=== PATIENT | male | born 1930 | race Asian ===

== ENCOUNTER 2019-07-07 18:12 | Inpatient (IN) | payer OTHER, BC ==
[~2019-07-07] VITALS: Ht 162.6 cm; Wt 72.6 kg
[2019-07-07 18:26] VITALS: Ht 162.6 cm; Wt 72.6 kg
[2019-07-07 19:31] LABS: PLATELET COUNT 169 x10^3mcL (130-400); RED CELL DISTRIBUTION WIDTH 13.3 % (11.5-14.5)
[2019-07-07 19:34] LABS: CALCIUM 8.3 mg/dL (8.5-10.1); CARBON DIOXIDE 25.7 mmol/L (21-32); CHLORIDE SERUM 107 mmol/L (98-107); GLUCOSE SERUM 92 mg/dL (74-106); POTASSIUM SERUM 3.5 mmol/L (3.5-5.1); SODIUM SERUM 142 mmol/L (136-145)
[2019-07-07 19:38] LABS: ALKALINE PHOSPHATASE 70 U/L (46-116); ALT/SGPT 18 U/L (16-63); AST/SGOT 18 U/L (15-37); BILIRUBIN TOTAL 0.6 mg/dL (0.20-1.00)
[2019-07-07 19:43] LABS: ALBUMIN 3.3 g/dL (3.4-5.0)
[2019-07-07 19:56] LABS: BAND NEUTROPHIL 0 % (0-10); BASOPHIL 0 % (0-2); MONOCYTE 14 % (0-7); SEGMENTED NEUTROPHILS 71 % (37-75); rbc morphology (normal/abnorm) NORMAL (NORMAL)
[2019-07-07 20:39] LABS: CHOLESTEROL/HDL RATIO 2.6
[2019-07-07 20:48] LABS: FREE T4 0.95 ng/dL (0.76-1.46); FREE THYROXINE INDEX 2.1 ug/dL (1.4-4.5)
[2019-07-07 20:49] LABS: UA SPECIFIC GRAVITY <=1.005 (1.005-1.035); microscopic required? YES; urine erythrocyte TRACE (NEGATIVE)
[2019-07-07 20:51] LABS: T3 TOTAL 0.86 ng/mL
[2019-07-07 20:58] LABS: AMPHETAMINE QUAL UR NONE DETECTED (See below)
[2019-07-07 21:46] VITALS: BP 137/83
[2019-07-08 06:35] VITALS: BP 151/78
[2019-07-08 07:19] LABS: BASOPHIL % 0.2 % (0-2); PLATELET COUNT 173 x10^3mcL (130-400); RED CELL DISTRIBUTION WIDTH 13.4 % (11.5-14.5)
[2019-07-08 07:50] LABS: CALCIUM 7.8 mg/dL (8.5-10.1); CARBON DIOXIDE 22.9 mmol/L (21-32); CHLORIDE SERUM 110 mmol/L (98-107); CREATININE SERUM 0.7 mg/dL (0.7-1.3); GLUCOSE SERUM 130 mg/dL (74-106); POTASSIUM SERUM 3.8 mmol/L (3.5-5.1); SODIUM SERUM 143 mmol/L (136-145)
[2019-07-08 08:26] VITALS: BP 145/72
[2019-07-08] MEDS ORDERED: SINGULAIR10 MG PO (13:11)
[2019-07-08] MEDS ORDERED: AVODART0.5 M1 PO (13:12)
[2019-07-08] MEDS ORDERED: FLO4 PO (13:12)
[2019-07-08] MEDS ORDERED: LIPI10 PO (13:14)
[2019-07-08] MEDS ORDERED: LEVOCETIRIZINE D5 M1 PO (13:15)
[2019-07-08] MEDS ORDERED: ASPIRIN ADULT L81 M3 PO (13:17)
[2019-07-08] MEDS ORDERED: AMBIEN5 MG PO (13:18)
[2019-07-08 16:27] VITALS: BP 119/70
[2019-07-08 21:33] VITALS: BP 122/64
[2019-07-09 05:27] VITALS: BP 131/74
[2019-07-09 06:48] LABS: PLATELET COUNT 182 x10^3mcL (130-400); RED CELL DISTRIBUTION WIDTH 13.6 % (11.5-14.5)
[2019-07-09 06:58] LABS: BASOPHIL % 0 % (0-2)
[2019-07-09 07:32] LABS: CALCIUM 8.1 mg/dL (8.5-10.1); CARBON DIOXIDE 20.2 mmol/L (21-32); CHLORIDE SERUM 109 mmol/L (98-107); CREATININE SERUM 0.9 mg/dL (0.7-1.3); GLUCOSE SERUM 125 mg/dL (74-106); MAGNESIUM 2.3 mg/dL (1.8-2.4); PHOSPHOROUS 3.1 mg/dL (2.5-4.9); POTASSIUM SERUM 3.4 mmol/L (3.5-5.1); SODIUM SERUM 144 mmol/L (136-145)
[2019-07-09 08:54] VITALS: BP 124/67
[2019-07-09 12:27] VITALS: BP 113/71
[2019-07-09 16:46] VITALS: BP 138/79
[2019-07-09 20:40] VITALS: BP 136/72
[2019-07-10 05:50] VITALS: BP 136/64
[2019-07-10 07:21] LABS: BASOPHIL % 0.1 % (0-2); PLATELET COUNT 196 x10^3mcL (130-400); RED CELL DISTRIBUTION WIDTH 13.4 % (11.5-14.5)
[2019-07-10 07:36] LABS: CALCIUM 8.1 mg/dL (8.5-10.1); CARBON DIOXIDE 24.4 mmol/L (21-32); CHLORIDE SERUM 107 mmol/L (98-107); CREATININE SERUM 0.8 mg/dL (0.7-1.3); GLUCOSE SERUM 111 mg/dL (74-106); MAGNESIUM 2.1 mg/dL (1.8-2.4); PHOSPHOROUS 3.6 mg/dL (2.5-4.9); POTASSIUM SERUM 3.7 mmol/L (3.5-5.1); SODIUM SERUM 142 mmol/L (136-145)
[2019-07-10 09:13] VITALS: BP 131/88
[2019-07-10 09:43] VITALS: BP 131/88
[2019-07-10 12:12] VITALS: BP 125/72
[2019-07-10 16:31] VITALS: BP 130/68
[2019-07-10 21:08] VITALS: BP 138/63
[2019-07-11 06:07] VITALS: BP 140/74
[2019-07-11 06:51] LABS: BASOPHIL % 0.1 % (0-2); PLATELET COUNT 205 x10^3mcL (130-400); RED CELL DISTRIBUTION WIDTH 13.5 % (11.5-14.5)
[2019-07-11 07:05] LABS: CALCIUM 7.9 mg/dL (8.5-10.1); CARBON DIOXIDE 25.3 mmol/L (21-32); CHLORIDE SERUM 106 mmol/L (98-107); CREATININE SERUM 0.8 mg/dL (0.7-1.3); GLUCOSE SERUM 109 mg/dL (74-106); POTASSIUM SERUM 3.8 mmol/L (3.5-5.1); SODIUM SERUM 142 mmol/L (136-145)
[2019-07-11 09:27] VITALS: BP 119/80
[2019-07-11] MEDS ORDERED: ZITHROMAX TRI-500 MG PO (10:59)
[2019-07-11] MEDS ORDERED: MEDDP PO (11:00)
[2019-07-11] MEDS ORDERED: TAMIFLU6 MG/ML PO (11:07)
[2019-07-11 13:05] VITALS: BP 133/76
== END 2019-07-11 17:10 | disposition home health service (06) | DRG 193 ==
LOC: ED 18:12 → DU 20:03
PROVIDERS: Emergency Medicine; ADMIT Internal Medicine
DX: J09.X1 Influenza due to identified novel influenza A virus with pneumonia (principal); J96.01 Acute respiratory failure with hypoxia; J44.1 Chronic obstructive pulmonary disease with (acute) exacerbation; F17.210 Nicotine dependence, cigarettes, uncomplicated; I11.9 Hypertensive heart disease without heart failure; I25.10 Atherosclerotic heart disease of native coronary artery without angina pectoris; E78.5 Hyperlipidemia, unspecified; Z68.27 Body mass index [BMI] 27.0-27.9, adult; Z95.5 Presence of coronary angioplasty implant and graft
CPT/HCPCS: 84439; 87804; 94150; 97110-GP; 97116-GP; 97530-GP; G0378; J0456; J0696; J2920; J2930; J7030; J7050; J7060; J7613; J7620; J7644; Q0092